=== PATIENT | female | born 1960 | race African-American/Black ===

== ENCOUNTER 2016-11-11 12:04 | Emergency (ER) | payer MEDICAID ==
[~2016-11-11] VITALS: Ht 160 cm; Wt 82.0 kg
[~2016-11-11 12:04] MED LIST: CLON0.1T PO; DIPH50TA19 PO; HYDR25TA PO; METO25TA6 PO; PRED5TAB48 PO
[2016-11-11] MEDS ORDERED: PREDNISONE 20MG TABLET PO ONE (13:15)
[2016-11-11] MEDS ORDERED: FAMOTIDINE 20MG TABLET PO ONE (13:15)
[2016-11-11] MEDS ORDERED: HYDROXYZINE 25MG TABLET PO ONE (13:15)
[2016-11-11] MEDS ORDERED: DIPHENHYDRAMINE 12.5MG/5ML UDC PO ONE (14:45)
[2016-11-11 15:29] VITALS: BP 158/82
== END 2016-11-11 15:47 | disposition home or self-care (01) ==
LOC: ER 13:45
DX: R21 Rash and other nonspecific skin eruption (principal); I12.9 Hypertensive chronic kidney disease with stage 1 through stage 4 chronic kidney disease, or unspecified chronic kidney disease; N18.9 Chronic kidney disease, unspecified; E11.9 Type 2 diabetes mellitus without complications; Z88.5 Allergy status to narcotic agent; Z88.6 Allergy status to analgesic agent; Z79.899 Other long term (current) drug therapy; Z98.51 Tubal ligation status
CPT/HCPCS: 99284; J7512; Z7610; Q0163

== ENCOUNTER 2017-10-13 09:57 | Emergency (ER) | payer MEDICAID, OTHER ==
[~2017-10-13] VITALS: Ht 165.1 cm; Wt 86.0 kg
[2017-10-13 10:12] VITALS: BP 151/61
== END 2017-10-13 15:00 | disposition left against medical advice (07) ==
LOC: ER 10:37
DX: L50.8 Other urticaria (principal); R21 Rash and other nonspecific skin eruption; E11.9 Type 2 diabetes mellitus without complications; I10 Essential (primary) hypertension; F17.200 Nicotine dependence, unspecified, uncomplicated; Z98.51 Tubal ligation status; Z88.6 Allergy status to analgesic agent
CPT/HCPCS: 99281

== ENCOUNTER 2019-04-11 05:37 | Emergency (ER) | payer OTHER ==
[~2019-04-11] VITALS: Ht 170.2 cm; Wt 79.0 kg
[2019-04-11] MEDS ORDERED: DEXAMETHASONE 10 MG/ML VIAL IM ONE (07:00)
[2019-04-11] MEDS ORDERED: DIPHENHYDRAMINE 25MG CAPSULE PO ONE (07:00)
[2019-04-11] MEDS ORDERED: KETOROLAC 60MG/2ML VIAL IM ONE (07:00)
[2019-04-11] MEDS ORDERED: HYDROCODONE/ACETAMINOPHEN 5/325MG TABLET PO ONE (07:00)
[2019-04-11 07:12] VITALS: BP 116/61
== END 2019-04-11 09:03 | disposition home or self-care (01) ==
LOC: ER 05:37
DX: M25.462 Effusion, left knee (principal); M17.12 Unilateral primary osteoarthritis, left knee; L30.9 Dermatitis, unspecified; I10 Essential (primary) hypertension; Z88.1 Allergy status to other antibiotic agents; Z88.6 Allergy status to analgesic agent; Z79.899 Other long term (current) drug therapy
CPT/HCPCS: 73562; 96372; 99283; J1100; J1885; Q0163; Z7610

== ENCOUNTER 2020-09-25 11:47 | Emergency (ER) | payer MEDICAID, OTHER ==
[~2020-09-25] VITALS: Ht 165.1 cm; Wt 59.0 kg
[~2020-09-25 11:47] MED LIST changes: +ALBU90AE INH; +ASPI-1497 MT; +COR3 MT; +FERR325T23 MT; +FOLI-43 MT; +FURO-151 MT; +LOSA50TA3 MT; +MULT-1146 MT; +PROT40 MT; +THIA100T72 MT
[2020-09-25 11:58] VITALS: BP 158/74
[2020-09-25] MEDS ORDERED: HYDROXYZINE 25MG TABLET PO ONE (12:45)
== END 2020-09-25 12:15 | disposition home or self-care (01) ==
LOC: ER 11:54
DX: L20.9 Atopic dermatitis, unspecified (principal); I10 Essential (primary) hypertension; I25.2 Old myocardial infarction; Z79.82 Long term (current) use of aspirin; Z79.899 Other long term (current) drug therapy; Z88.5 Allergy status to narcotic agent
CPT/HCPCS: 99283